=== PATIENT | male | born 1955 | race Caucasian/White ===

== ENCOUNTER 2022-10-15 15:16 | Inpatient (IN) | payer OTHER, MEDICAID ==
[~2022-10-15] VITALS: Ht 170.2 cm; Wt 114.3 kg
[2022-10-15 15:20] VITALS: O2SAT 96
[2022-10-15 16:56] LABS: BASOPHILS % 0.5 % (0.0-2.0); EOSINOPHILS % 1.8 % (0.0-5.0); HEMATOCRIT. 33.2 % (42.0-52.0); HEMOGLOBIN. 10.7 g/dL (14.0-18.0); LYMPHOCYTES % 13.8 % (20.0-50.0); MEAN CORPUSCULAR HEMOGLOBIN 26.9 pg (28.0-32.0); MEAN CORPUSCULAR HGB CONC 32.3 g/dL (31.0-37.0); MEAN CORPUSCULAR VOLUME 83.3 fL (80.0-94.0); MEAN PLATELET VOLUME 7.4 fl (7.4-10.4); MONOCYTES % 8.4 % (2.0-8.0); NEUTROPHILS % 75.5 % (40.0-76.0); PLATELET 281 x1000/uL (130-400); RED BLOOD CELL COUNT 3.98 mill/uL (4.7-6.1); RED CELL DISTRIBUTION WIDTH 14.5 % (11.6-14.6); WHITE BLOOD COUNT 15.3 x1000/uL (4.5-11.0)
[2022-10-15 17:01] LABS: CHLORIDE 102 mEq/L (98-107); INDEX HEMOLYSI 1 (1-3); INDEX ICTERIC 1 (1-4); INDEX LIPEMIC 1 (1-3); POTASSIUM 4.3 mEq/L (3.5-5.1); SODIUM 136 mEq/L (136-145)
[2022-10-15 17:06] LABS: PROTHROMBIN TIME 10.7 sec (9.6-11.0)
[2022-10-15 17:11] LABS: ALANINE AMINOTRANSFERASE 34 IU/L (13-61); ALBUMIN 3.2 g/dL (3.4-5.0); ASPARTATE AMINOTRANSFERASE 16 IU/L (15-37); BILIRUBIN TOTAL 0.4 mg/dL (0.1-1.0); CARBON DIOXIDE 27 mEq/L (21-32); GLUCOSE 153 mg/dL (70-105); PROTEIN TOTAL 6.7 g/dL (6.0-8.3); UREA NITROGEN BLOOD 45 mg/dL (7-21)
[2022-10-15 17:19] LABS: CREATININE 5.1 mg/dL (0.6-1.3)
[2022-10-15 19:00] LABS: HEMOGLOBIN 10.6 g/dL (14.0-18.0); MEAN CORPUSCULAR HEMOGLOBIN 26.5 pg (28.0-32.0); MEAN CORPUSCULAR VOLUME 82.8 fL (80.0-94.0); PLATELET 281 x1000/uL (130-400); RED BLOOD CELL COUNT 3.98 mill/uL (4.7-6.1); RED CELL DISTRIBUTION WIDTH 14.7 % (11.6-14.6); WHITE BLOOD COUNT 14.6 x1000/uL (4.5-11.0)
[2022-10-15 20:00] VITALS: BP 159/78; PULSE 68; RESP 18; TEMP 98.1
[2022-10-15] MEDS ORDERED: ONDANSETRON HCL 4MG/2ML INJ IV PRN (23:30)
[2022-10-15] MEDS ORDERED: GUAIFENESIN 200MG/10ML SUGAR FREE UDC PO PRN (23:30)
[2022-10-15] MEDS ORDERED: DOCUSATE SODIUM 100MG CAPSULE PO PRN (23:30)
[2022-10-15] MEDS ORDERED: CLONIDINE 0.1MG TABLET PO PRN (23:30)
[2022-10-15] MEDS ORDERED: MAGNESIUM/ALUMINUM HYDROXIDE/SIMETHICONE 30ML UDC PO PRN (23:30)
[2022-10-15] MEDS ORDERED: IPRATROPIUM/ALBUTEROL 0.5-3(2.5)MG/3ML NEB HHN PRN (23:30)
[2022-10-15] MEDS ORDERED: DEXTROSE 50% WATER 50ML SYRINGE IV PRN (23:30)
[2022-10-15] MEDS ORDERED: ACETAMINOPHEN 325MG TABLET PO PRN ×2 (23:30)
[2022-10-15] MEDS: PIPERACILLIN/TAZOBACTAM 3.375 G in DEXTROSE 5% WATER 50 ML IV SCH (23:45)
[2022-10-16] VITALS (7 sets, daily range): BP systolic 119–137; BP diastolic 52–70; PULSE 68–78; RESP 18–20; TEMP 97.7–99.2
[2022-10-16] MEDS ORDERED: VANCOMYCIN 1G PREMIX 200 ML IV NR (04:00)
[2022-10-16] MEDS: BLOOD SUGAR DIAGNOSTIC STRIP TEST SCH ×4 (07:11→21:00)
[2022-10-16] MEDS: INSULIN LISPRO 100 UNITS/ML SUBCUT SCH ×4 (07:12→22:22)
[2022-10-16 08:05] LABS: BASOPHILS % 0.5 % (0.0-2.0); EOSINOPHILS % 2.3 % (0.0-5.0); HEMATOCRIT. 30.7 % (42.0-52.0); HEMOGLOBIN. 10.1 g/dL (14.0-18.0); LYMPHOCYTES % 20.4 % (20.0-50.0); MEAN CORPUSCULAR HEMOGLOBIN 27.5 pg (28.0-32.0); MEAN CORPUSCULAR HGB CONC 32.8 g/dL (31.0-37.0); MEAN PLATELET VOLUME 7.5 fl (7.4-10.4); MONOCYTES % 9.4 % (2.0-8.0); NEUTROPHILS % 67.4 % (40.0-76.0); PLATELET 261 x1000/uL (130-400); RED BLOOD CELL COUNT 3.65 mill/uL (4.7-6.1); RED CELL DISTRIBUTION WIDTH 14.9 % (11.6-14.6); WHITE BLOOD COUNT 11.3 x1000/uL (4.5-11.0)
[2022-10-16 08:26] LABS: INDEX HEMOLYSI 1 (1-3)
[2022-10-16 08:27] LABS: ALBUMIN 3.1 g/dL (3.4-5.0); CALCIUM 7.8 mg/dL (8.5-10.1); CHLORIDE 105 mEq/L (98-107); INDEX HEMOLYSI 1 (1-3); INDEX ICTERIC 1 (1-4); INDEX LIPEMIC 1 (1-3); POTASSIUM 4.1 mEq/L (3.5-5.1); SODIUM 134 mEq/L (136-145)
[2022-10-16 08:35] LABS: CREATINE KINASE 98 IU/L (39-308); CREATINE KINASE MB FRACTION < 1.0 ng/mL (0.5-3.6); TROPONIN I HIGH SENSITIVITY 12 ng/L (<78)
[2022-10-16 08:41] LABS: ALANINE AMINOTRANSFERASE 31 IU/L (13-61); ASPARTATE AMINOTRANSFERASE 13 IU/L (15-37); BILIRUBIN TOTAL 0.6 mg/dL (0.1-1.0); CARBON DIOXIDE 24 mEq/L (21-32); CHOLESTEROL 152 mg/dL (<200); CREATINE KINASE 97 IU/L (39-308); CREATINE KINASE MB FRACTION < 1.0 ng/mL (0.5-3.6); GLUCOSE 120 mg/dL (70-105); HDL CHOLESTEROL 31 mg/dL (40-59); IRON 87 ug/dL (50-175); LDL CHOLESTEROL 67 mg/dL (5-100); PROTEIN TOTAL 6.5 g/dL (6.0-8.3); T4 FREE 0.72 ng/dL (0.76-1.46); TOTAL IRON BINDING CAPACITY 227 ug/dL (250-450); TRIGLYCERIDE 383 mg/dL (0-150); TROPONIN I HIGH SENSITIVITY 11 ng/L (<78); UREA NITROGEN BLOOD 47 mg/dL (7-21)
[2022-10-16 08:42] LABS: CREATININE 5.8 mg/dL (0.6-1.3)
[2022-10-16] MEDS: PIPERACILLIN/TAZOBACTAM 3.375 G in DEXTROSE 5% WATER 50 ML IV SCH (10:05)
[2022-10-16 10:31] LABS: VITAMIN B12 SERUM 463 pg/mL (211-911)
[2022-10-16] MEDS ORDERED: VANCOMYCIN 1G PREMIX 200 ML IV SCH (11:00)
[2022-10-16] MEDS: ATORVASTATIN CALCIUM 40MG TABLET PO SCH (22:02)
[2022-10-17] VITALS (10 sets, daily range): BP systolic 111–134; BP diastolic 48–82; PULSE 78–83; RESP 18–20; TEMP 97.7–99.1
[2022-10-17] MEDS: INSULIN LISPRO 100 UNITS/ML SUBCUT SCH ×4 (07:05→20:51)
[2022-10-17] MEDS: BLOOD SUGAR DIAGNOSTIC STRIP TEST SCH ×4 (07:05→20:50)
[2022-10-17 07:46] LABS: BASOPHILS % 0.7 % (0.0-2.0); EOSINOPHILS % 5.6 % (0.0-5.0); HEMATOCRIT. 28.2 % (42.0-52.0); HEMOGLOBIN. 9.5 g/dL (14.0-18.0); LYMPHOCYTES % 16.9 % (20.0-50.0); MEAN CORPUSCULAR HGB CONC 33.6 g/dL (31.0-37.0); MEAN CORPUSCULAR VOLUME 83.4 fL (80.0-94.0); MEAN PLATELET VOLUME 7.6 fl (7.4-10.4); NEUTROPHILS % 64.8 % (40.0-76.0); PLATELET 254 x1000/uL (130-400); RED BLOOD CELL COUNT 3.38 mill/uL (4.7-6.1); RED CELL DISTRIBUTION WIDTH 14.5 % (11.6-14.6); WHITE BLOOD COUNT 10.2 x1000/uL (4.5-11.0)
[2022-10-17 09:13] LABS: POTASSIUM 4.3 mEq/L (3.5-5.1)
[2022-10-17] MEDS ORDERED: POLYMYXIN B SULFATE 500000 UNITS/VIAL ONE (09:15)
[2022-10-17] MEDS ORDERED: BUPIVACAINE HCL/PF 0.5% (5MG/ML) 10ML ONE (09:16)
[2022-10-17] MEDS ORDERED: LIDOCAINE HCL 1% 20ML VIAL (Pyxis) INJ ONE (09:16)
[2022-10-17] MEDS ORDERED: BACITRACIN 15GM TUBE TOP ONE (09:16)
[2022-10-17] MEDS ORDERED: THROMBIN (BOVINE) 5000 UNITS/VIAL TOP ONE (09:16)
[2022-10-17] MEDS ORDERED: HEPARIN SODIUM 1,000 UNIT/1ML VIAL IV ONE (09:16)
[2022-10-17 09:21] LABS: CALCIUM 7.3 mg/dL (8.5-10.1)
[2022-10-17 09:23] LABS: CREATININE 6.8 mg/dL (0.6-1.3)
[2022-10-17] MEDS ORDERED: METOCLOPRAMIDE HCL 10MG/2ML VIAL ONE (09:27)
[2022-10-17] MEDS ORDERED: ONDANSETRON HCL 4MG/2ML INJ ONE (09:27)
[2022-10-17] MEDS ORDERED: CEFAZOLIN SODIUM 1000MG/VIAL ONE (09:27)
[2022-10-17] MEDS ORDERED: PROPOFOL 200MG/20ML VIAL IV ONE (09:27)
[2022-10-17] MEDS ORDERED: FENTANYL CITRATE/PF 50MCG/ML 2ML VIAL ONE (09:27)
[2022-10-17 16:45] LABS: HEPATITIS B SURFACE ANTIGEN NEGATIVE
[2022-10-17 17:10] LABS: HEPATITIS B CORE AB IGM NEGATIVE
[2022-10-17 17:12] LABS: HEPATITIS A AB IGM NEGATIVE (NEGATIVE)
[2022-10-17] MEDS: ATORVASTATIN CALCIUM 40MG TABLET PO SCH (20:40)
[2022-10-17] MEDS ORDERED: FAMOTIDINE 20MG TABLET PO SCH (21:00)
[2022-10-17] MEDS ORDERED: EPOETIN ALFA 4000UNITS/ML VIAL SUBCUT SCH (21:00)
[2022-10-17 23:08] LABS: HEPATITIS C VIR.AB 0.11 INDEXVAL (0.00-0.80)
[2022-10-18] MEDS: BLOOD SUGAR DIAGNOSTIC STRIP TEST SCH ×2 (06:37→12:13)
[2022-10-18 07:34] LABS: HEMATOCRIT 27.7 % (42.0-52.0); HEMOGLOBIN 9.1 g/dL (14.0-18.0); MEAN CORPUSCULAR HEMOGLOBIN 27.5 pg (28.0-32.0); MEAN CORPUSCULAR VOLUME 83.3 fL (80.0-94.0); PLATELET 274 x1000/uL (130-400); RED BLOOD CELL COUNT 3.32 mill/uL (4.7-6.1); RED CELL DISTRIBUTION WIDTH 14.5 % (11.6-14.6); WHITE BLOOD COUNT 11.4 x1000/uL (4.5-11.0)
[2022-10-18] MEDS: INSULIN LISPRO 100 UNITS/ML SUBCUT SCH ×2 (07:40→12:13)
[2022-10-18 08:00] VITALS: BP 111/64; PULSE 70; RESP 20; TEMP 96
[2022-10-18 08:20] LABS: POTASSIUM 3.9 mEq/L (3.5-5.1)
[2022-10-18 08:32] LABS: CALCIUM 7.5 mg/dL (8.5-10.1)
[2022-10-18 09:58] LABS: CREATININE 6.2 mg/dL (0.6-1.3)
[2022-10-18 12:00] VITALS: BP 110/59; PULSE 75; RESP 18; TEMP 96.8
[2022-10-18 12:18] VITALS: BP 115/70; PULSE 73; TEMP 96.3
== END 2022-10-18 14:20 | disposition home or self-care (01) | DRG 314 ==
LOC: ER 15:16 → 8WST 18:30 → EDBEDREQTM 18:33 → EDBEDREQ 18:33 → SUPCPDRO 21:19
PROVIDERS: ADMIT Internal Medicine; ATTEND Internal Medicine
PROC: 0HQCXZZ Repair Left Upper Arm Skin, External Approach (ICD-10-PCS; principal; 2022-10-17)
PROC: 5A1D70Z Performance of Urinary Filtration, Intermittent, Less than 6 Hours Per Day (ICD-10-PCS; 2022-10-17)
DX: T82.838A Hemorrhage due to vascular prosthetic devices, implants and grafts, initial encounter (principal); N18.6 End stage renal disease; I12.0 Hypertensive chronic kidney disease with stage 5 chronic kidney disease or end stage renal disease; E44.0 Moderate protein-calorie malnutrition; R65.10 Systemic inflammatory response syndrome (SIRS) of non-infectious origin without acute organ dysfunction; E11.65 Type 2 diabetes mellitus with hyperglycemia; E11.22 Type 2 diabetes mellitus with diabetic chronic kidney disease; E83.51 Hypocalcemia; D63.8 Anemia in other chronic diseases classified elsewhere; D50.0 Iron deficiency anemia secondary to blood loss (chronic); S41.112A Laceration without foreign body of left upper arm, initial encounter; D72.10 Eosinophilia, unspecified; Z68.39 Body mass index [BMI] 39.0-39.9, adult; Z99.2 Dependence on renal dialysis; Z79.82 Long term (current) use of aspirin; Y84.1 Kidney dialysis as the cause of abnormal reaction of the patient, or of later complication, without mention of misadventure at the time of the procedure; X58.XXXA Exposure to other specified factors, initial encounter; Y93.89 Activity, other specified; Y92.89 Other specified places as the place of occurrence of the external cause; Y99.8 Other external cause status
CPT/HCPCS: 36415; 80048; 80053; 80061; 82330; 82550; 82553; 82607; 82746; 82962; 83036; 83540; 83550; 83735; 84439; 84443; 84484; 85025; 85027; 86705; 86709; 86803; 86850; 86900; 87340; 87426; 90935; 93005; 97162; 97165; 97535; 99285; J0690; J0885; J1644; J1815; J2405; J2543; J2704; J2765; J3010; J3370; J3490; J7030; J7060

== ENCOUNTER 2024-03-26 07:05 | Emergency (ER) | payer OTHER, MEDICAID ==
[~2024-03-26] VITALS: Ht 167.6 cm; Wt 90.0 kg
[2024-03-26] MEDS: LIDOCAINE HCL/PF 1% 10 MG/ML 5ML VIAL INFIL ONE (07:15)
[2024-03-26 07:19] VITALS: O2SAT 95
[2024-03-26 07:52] LABS: BASOPHILS % 0.9 % (0.0-2.0); EOSINOPHILS % 9.4 % (0.0-5.0); HEMATOCRIT. 31.8 % (42.0-52.0); HEMOGLOBIN. 10.1 g/dL (14.0-18.0); LYMPHOCYTES % 18.2 % (20.0-50.0); MEAN CORPUSCULAR HEMOGLOBIN 27.2 pg (28.0-32.0); MEAN CORPUSCULAR HGB CONC 31.7 g/dL (31.0-37.0); MEAN CORPUSCULAR VOLUME 85.9 fL (80.0-94.0); MONOCYTES % 7.3 % (2.0-8.0); NEUTROPHILS % 64.2 % (40.0-76.0); PLATELET 309 x1000/uL (130-400); RED CELL DISTRIBUTION WIDTH 15.7 % (11.6-14.6); WHITE BLOOD COUNT 11.4 x1000/uL (4.5-11.0)
[2024-03-26 08:05] LABS: POTASSIUM 5.2 mEq/L (3.5-5.1)
[2024-03-26 08:06] LABS: CALCIUM 7.4 mg/dL (8.7-10.4)
[2024-03-26] MEDS: SODIUM CHLORIDE 0.9% 1,000 ML IV ONE (08:07)
[2024-03-26 08:35] LABS: CREATININE 7.2 mg/dL (0.6-1.3)
[2024-03-26 11:00] VITALS: BP 131/50; PULSE 84; RESP 20; TEMP 36.6; O2SAT 98
== END 2024-03-26 11:38 | disposition home or self-care (01) ==
LOC: ER 07:28
DX: T82.838A Hemorrhage due to vascular prosthetic devices, implants and grafts, initial encounter (principal); Y99.8 Other external cause status
CPT/HCPCS: 99283; 96360; 80048; 85025; 36415; J7030